=== PATIENT | female | born 1950 | race Caucasian/White ===

== ENCOUNTER 2021-12-18 03:04 | Inpatient (IN) | payer BC, MEDICARE ==
[2021-12-18] MEDS ORDERED: Acetaminophen 325 MG TAB ONE (03:26)
[2021-12-18] MEDS ORDERED: Vancomycin 1 GM/200 ML BAG ONE (03:31)
[2021-12-18 04:32] LABS: Hemoglobin 9.7 g/dL (12.0-16.0); Mean Corpuscular HGB CONC 34.7 g/dL (32.0-36.0); Mean Corpuscular Hemoglobin 41.4 pg (27.0-31.0); RBC Distribution Width 16.1 % (11.5-14.5); Red Blood Cell (RBC) Count 2.34 mill/uL (4.20-5.40); White Blood Cell (WBC) Count 4.3 thou/uL (4.8-10.8)
[2021-12-18 04:45] LABS: ALT (SGPT) 20 U/L (8-55); AST (SGOT) 20 U/L (5-34); Albumin 3.5 g/dL (3.4-4.8); Alkaline Phosphatase 65 U/L (40-110); Anion Gap 18 mmol/L (10-20); BUN (Urea Nitrogen) 9 mg/dL (9.8-20.1); Bilirubin, Total 1.1 mg/dL (0.2-1.2); Calc. Creatinine Clearance 0 mL/min (70-130); Calcium 7.7 mg/dL (7.8-10.44); Carbon Dioxide 17 mmol/L (23-31); Chloride 98 mmol/L (98-107); Glucose 113 mg/dL (80-115); Protein, Total 5.5 g/dL (5.8-8.1); Sodium 130 mmol/L (136-145)
[2021-12-18 04:51] LABS: Potassium 2.9 mmol/L (3.5-5.1)
[2021-12-18] MEDS ORDERED: Cefepime 2 GM VIAL ONE (04:51)
[2021-12-18] MEDS ORDERED: Potassium Chloride 20 MEQ/100 ML PREMIX BAG ONE (04:51)
[2021-12-18 04:54] LABS: Band 36 % (5-11); Eosinophils 1 % (0-10); Lymphocytes 9 % (21-51); MDiff Complete? YES; Macrocytosis SLIGHT = 6-15 cells (100X) (0-5/hpf); Monocytes 12 % (0-10); Neutrophil 42 % (42-75); Platelet Count 53 thou/uL (130-400); Platelet Morphology Comment Appears Adequate
[2021-12-18] MEDS ORDERED: Potassium Bicarbonate/Cit Ac 25 MEQ TAB PO SCH (05:15)
[2021-12-18 06:26] LABS: Bacteria/HPF 2+ HPF (None Seen); Bilirubin Negative (Negative); Blood, Urine Negative (Negative); Clarity Turbid (Clear); Glucose, Urine (Dipstick) Normal (Negative); Ketone, Urine Negative (Negative); Leukocyte 250 Leu/uL (Negative); Nitrite Negative (Negative); Protein, Urine (Dipstick) Negative (Neg-Trace); RBC/HPF 0-3 HPF (0-3); Specific Gravity, Urine 1.014 (1.002-1.036); Squamous Epithelial None Seen HPF (0-3); Urobilinogen Normal mg/dL (Less than 2)
[2021-12-18 07:13] LABS: SARS-CoV-2 NAA Rapid Test Not Detected (NotDetected)
[2021-12-18] MEDS ORDERED: HYDROcodone/Acetaminophen 10/325 mg Tablet PO PRN (07:46)
[2021-12-18] MEDS ORDERED: Cyclobenzaprine 10 MG TAB PO PRN (07:46)
[2021-12-18] MEDS ORDERED: Ondansetron PF 4 MG/2 ML Vial IVP PRN (07:49)
[2021-12-18] MEDS ORDERED: Lactated Ringer's 1,000 ML IV SCH (08:00)
[2021-12-18] MEDS ORDERED: Potassium Chloride 20 MEQ in Premix Bag 1 BAG IVPB SCH (08:45)
[2021-12-18 08:47] LABS: Magnesium 1.6 mg/dL (1.6-2.6)
[2021-12-18] MEDS ORDERED: Iopamidol 370 76% 100 ML VIAL ONE (09:29)
[2021-12-18] MEDS: Acetaminophen 325 MG TAB PO PRN ×2 (10:15→16:04)
[2021-12-18 11:05] VITALS: BMI 23.1
[2021-12-18] MEDS: Calcium Carbonate 600 MG TAB PO SCH (11:51)
[2021-12-18] MEDS ORDERED: metroNIDAZOLE 500 MG in Premix Bag 1 BAG IVPB SCH (12:00)
[2021-12-18] MEDS: metroNIDAZOLE 500 MG TAB PO SCH ×3 (13:16→23:59)
[2021-12-18] MEDS ORDERED: Ibuprofen 800 MG TAB PO PRN (18:40)
[2021-12-19] MEDS: metroNIDAZOLE 500 MG TAB PO SCH ×4 (05:34→23:58)
[2021-12-19] MEDS: Acetaminophen 325 MG TAB PO PRN ×2 (05:55→21:09)
[2021-12-19 05:59] LABS: Anion Gap 8 mmol/L (10-20); BUN (Urea Nitrogen) 6 mg/dL (9.8-20.1); Calc. Creatinine Clearance 68 mL/min (70-130); Calcium 7.7 mg/dL (7.8-10.44); Carbon Dioxide 28 mmol/L (23-31); Chloride 106 mmol/L (98-107); Glucose 101 mg/dL (80-115); Potassium 3.8 mmol/L (3.5-5.1); Sodium 138 mmol/L (136-145)
[2021-12-19 07:33] LABS: Band 30 % (5-11); Bite Cells SLIGHT = 2-5 cells (100X) (0-1/hpf); Eosinophils 2 % (0-10); Hemoglobin 9.1 g/dL (12.0-16.0); Lymphocytes 16 % (21-51); MDiff Complete? YES; Macrocytosis MODERATE=16-30 cells (100X) (0-5/hpf); Mean Corpuscular HGB CONC 32.5 g/dL (32.0-36.0); Mean Corpuscular Hemoglobin 39.7 pg (27.0-31.0); Mean Platelet Volume 10.3 fL (7.4-10.4); Monocytes 22 % (0-10); Neutrophil 26 % (42-75); Platelet Count 46 thou/uL (130-400); Platelet Morphology Comment Appears Decreased; Polychromasia MODERATE = 3-4 cells (100X) (0-2/hpf); RBC Distribution Width 16.2 % (11.5-14.5); Reactive Lymphocytes 2 % (0-10); Red Blood Cell (RBC) Count 2.28 mill/uL (4.20-5.40)
[2021-12-19] MEDS: Calcium Carbonate 600 MG TAB PO SCH (10:22)
[2021-12-19] MEDS ORDERED: Diphenoxylate HCl/Atropine Tablet PO PRN (11:14)
[2021-12-19] MEDS: Lactated Ringer's 1,000 ML IV SCH (12:37)
[2021-12-19] MEDS: Pregabalin 25 MG CAP PO SCH (21:10)
[2021-12-20] MEDS: Lactated Ringer's 1,000 ML IV SCH ×2 (02:13→18:11)
[2021-12-20] MEDS: Acetaminophen 325 MG TAB PO PRN ×2 (04:39→10:04)
[2021-12-20 06:01] LABS: Hemoglobin 9.3 g/dL (12.0-16.0); Mean Corpuscular HGB CONC 32.9 g/dL (32.0-36.0); Mean Corpuscular Hemoglobin 39.5 pg (27.0-31.0); Mean Platelet Volume 9.4 fL (7.4-10.4); Platelet Count 52 thou/uL (130-400); RBC Distribution Width 16.7 % (11.5-14.5); Red Blood Cell (RBC) Count 2.36 mill/uL (4.20-5.40); White Blood Cell (WBC) Count 3.5 thou/uL (4.8-10.8)
[2021-12-20] MEDS: metroNIDAZOLE 500 MG TAB PO SCH (06:14)
[2021-12-20] MEDS: Levothyroxine Sodium 88 MCG TAB PO SCH (06:14)
[2021-12-20 06:20] LABS: Band 32 % (5-11); Eosinophils 1 % (0-10); Lymphocytes 23 % (21-51); MDiff Complete? YES; Macrocytosis MODERATE=16-30 cells (100X) (0-5/hpf); Metamyelocyte 2 % (0-0); Monocytes 15 % (0-10); Neutrophil 27 % (42-75); Platelet Morphology Comment Appears Decreased
[2021-12-20 06:25] LABS: Anion Gap 11 mmol/L (10-20); BUN (Urea Nitrogen) 4 mg/dL (9.8-20.1); Calc. Creatinine Clearance 69 mL/min (70-130); Carbon Dioxide 24 mmol/L (23-31); Chloride 106 mmol/L (98-107); Glucose 88 mg/dL (80-115); Potassium 3.3 mmol/L (3.5-5.1); Sodium 138 mmol/L (136-145)
[2021-12-20] MEDS ORDERED: Non-Formulary Item 1 EACH (Levothyroxine Sodium [Levothyroxine] 88 MCG Capsule) PO SCH (09:00)
[2021-12-20] MEDS ORDERED: Non-Formulary Item 1 EACH (Folic Acid [Folic Acid] 0.4 MG Tablet) PO SCH (09:00)
[2021-12-20] MEDS: Calcium Carbonate 600 MG TAB PO SCH (09:55)
[2021-12-20] MEDS: Pregabalin 25 MG CAP PO SCH ×2 (09:56→21:23)
[2021-12-20] MEDS: Folic Acid 1 MG TAB PO SCH (09:57)
[2021-12-20] MEDS: valACYclovir 500 MG TAB PO SCH (09:58)
[2021-12-20] MEDS: DULoxetine 60 MG CAP PO SCH (09:58)
[2021-12-20] MEDS: Cyanocobalamin (Vitamin B-12) 1,000 MCG TAB PO SCH (09:58)
[2021-12-20] MEDS: LACTINEX 1 TAB PO SCH (21:23)
[2021-12-20] MEDS: Sulfameth/Trimethoprim DS 800-160mg TAB PO SCH (21:23)
[2021-12-20] MEDS: Cholestyramine/Aspartame 4 gm Packet PO SCH (22:35)
[2021-12-21] MEDS: Levothyroxine Sodium 88 MCG TAB PO SCH (06:32)
[2021-12-21] MEDS: Lactated Ringer's 1,000 ML IV SCH ×2 (09:04→21:08)
[2021-12-21] MEDS: LACTINEX 1 TAB PO SCH ×2 (09:05→21:08)
[2021-12-21] MEDS: Calcium Carbonate 600 MG TAB PO SCH (09:05)
[2021-12-21] MEDS: Pregabalin 25 MG CAP PO SCH ×2 (09:06→21:09)
[2021-12-21] MEDS: DULoxetine 60 MG CAP PO SCH (09:06)
[2021-12-21] MEDS: Cyanocobalamin (Vitamin B-12) 1,000 MCG TAB PO SCH (09:06)
[2021-12-21] MEDS: Folic Acid 1 MG TAB PO SCH (09:06)
[2021-12-21] MEDS: Cholestyramine/Aspartame 4 gm Packet PO SCH ×2 (09:07→22:09)
[2021-12-21] MEDS: Sulfameth/Trimethoprim DS 800-160mg TAB PO SCH ×2 (09:07→21:09)
[2021-12-21] MEDS: valACYclovir 500 MG TAB PO SCH (09:07)
[2021-12-21] MEDS: Acetaminophen 325 MG TAB PO PRN (09:07)
[2021-12-22] MEDS: Acetaminophen 325 MG TAB PO PRN (00:09)
[2021-12-22 05:13] LABS: Norovirus GI Negative (Negative); Norovirus GII Negative (Negative)
[2021-12-22] MEDS: Levothyroxine Sodium 88 MCG TAB PO SCH (05:55)
[2021-12-22] MEDS: Folic Acid 1 MG TAB PO SCH (07:41)
[2021-12-22] MEDS: LACTINEX 1 TAB PO SCH (07:41)
[2021-12-22] MEDS: Pregabalin 25 MG CAP PO SCH (07:41)
[2021-12-22] MEDS: DULoxetine 60 MG CAP PO SCH (07:42)
[2021-12-22] MEDS: Calcium Carbonate 600 MG TAB PO SCH (07:42)
[2021-12-22] MEDS: Sulfameth/Trimethoprim DS 800-160mg TAB PO SCH (07:42)
[2021-12-22] MEDS: valACYclovir 500 MG TAB PO SCH (07:42)
[2021-12-22] MEDS: Cyanocobalamin (Vitamin B-12) 1,000 MCG TAB PO SCH (07:42)
[2021-12-22 08:13] VITALS: BP 109/71
[2021-12-22] MEDS: Cholestyramine/Aspartame 4 gm Packet PO SCH (09:43)
[2021-12-22] MEDS: Lactated Ringer's 1,000 ML IV SCH (09:43)
[2021-12-22 11:47] VITALS: TEMP 98.3
[2021-12-22] MEDS ORDERED: Potassium Chloride 20 MEQ TAB PO SCH (13:00)
== END 2021-12-22 14:25 | disposition home or self-care (01) | DRG 872 ==
LOC: ERS 03:04 → MSONC 07:22
PROVIDERS: ADMIT Hospitalist; ATTEND Internal Medicine
DX: A02.1 Salmonella sepsis (principal); C90.00 Multiple myeloma not having achieved remission; N30.00 Acute cystitis without hematuria; A04.8 Other specified bacterial intestinal infections; E87.1 Hypo-osmolality and hyponatremia; Z20.822 Contact with and (suspected) exposure to COVID-19; E78.00 Pure hypercholesterolemia, unspecified; E03.9 Hypothyroidism, unspecified; E87.6 Hypokalemia; D69.59 Other secondary thrombocytopenia; T45.1X5A Adverse effect of antineoplastic and immunosuppressive drugs, initial encounter; Z88.0 Allergy status to penicillin; Z90.710 Acquired absence of both cervix and uterus; Z98.890 Other specified postprocedural states; Z79.899 Other long term (current) drug therapy; Z79.890 Hormone replacement therapy
CPT/HCPCS: 36415; 70487; 71045; 74177; 80048; 80053; 81003; 81015; 83605; 83630; 83735; 84443; 84484; 85025; 87040; 87045; 87046; 87077; 87086; 87186; 87324; 87427; 87449; 87798; 93005; J0692; J0744; J3370; J3480; J7120; Q9967; U0002